=== PATIENT | male | born 1950 | race Caucasian/White ===

== ENCOUNTER 2018-08-20 00:17 | Inpatient (IN) | payer MEDICARE ==
[~2018-08-20] VITALS: Ht 163.8 cm; Wt 73.5 kg
[~2018-08-20 00:17] MED LIST: ALPR0.25 PO; ASPI-621 PO; ATOR10TA PO; ATOR40TA78 PO; ESOM20CA PO; METO25TA35 PO; OMEP20TA9 PO; OMEP40CA6 PO; TICA90TA PO
[2018-08-20] MEDS ORDERED: PROPOFOL 10 MG/ML, 20ML ONE (00:25)
[2018-08-20] MEDS ORDERED: PROPOFOL 10 MG/ML, 20ML IVPush ONE (00:30)
[2018-08-20] MEDS ORDERED: SODIUM CHLORIDE 0.9% 1,000ML IVBOLUS ONE (00:30)
[2018-08-20] MEDS ORDERED: ONDANSETRON 2MG/ML, 2ML ONE (00:31)
[2018-08-20 00:54] LABS: BASOPHILS # (AUTO) 0.03 x10^3/uL (0-0.1); BASOPHILS % (AUTO) 0 % (0-1); EOSINOPHILS # (AUTO) 0.03 x10^3/uL (0-0.4); EOSINOPHILS % (AUTO) 0 % (1-7); LYMPHOCYTES # (AUTO) 1.88 x10^3/uL (1-3.4); LYMPHOCYTES % (AUTO) 15 % (22-44); MD NO; MEAN CORPUSCULAR HGB CONC 33.7 g/dL (33.2-36.2); MEAN CORPUSCULAR VOLUME 97.9 fL (81-97); MEAN PLATELET VOLUME 7.8 fL (7.4-10.4); MONOCYTES # (AUTO) 0.64 x10^3/uL (0.2-0.8); MONOCYTES % (AUTO) 5 % (2-9); NEUTROPHILS # (AUTO) 9.58 x10^3/uL (1.8-6.8); NEUTROPHILS % (AUTO) 79 % (42-75); PLATELET COUNT 197 x10^3/uL (130-400); RED BLOOD COUNT 4.63 x10^6/uL (4.38-5.82); RED CELL DISTRIBUTION WIDTH 13.2 % (9.4-14.8)
[2018-08-20 01:04] LABS: ALBUMIN 3.5 g/dL (3.4-5.0); ANION GAP 14 mmol/L (5-15); CALCIUM 8.3 mg/dL (8.5-10.1); CHLORIDE 109 mmol/L (98-107)
[2018-08-20 01:11] LABS: ALANINE AMINOTRANSFERASE 80 U/L (12-78); ALKALINE PHOSPHATASE 130 U/L (45-117); BILIRUBIN,TOTAL 0.9 mg/dL (0.2-1.0); CREATININE 1.46 mg/dL (0.7-1.3); TOTAL PROTEIN 6.6 g/dL (6.4-8.2)
[2018-08-20 01:16] LABS: TROPONIN I 0.531 ng/mL (0.000-0.045)
[2018-08-20] MEDS ORDERED: ATOR40TA78 PO (01:33)
[2018-08-20] MEDS ORDERED: [UNRECOGNIZED DRUG - CODE] PO (01:35)
[2018-08-20] MEDS ORDERED: SODIUM CHLORIDE 0.9% 1,000 ML IV ONE (02:28)
[2018-08-20 03:48] VITALS: BP 138/83
[2018-08-20] MEDS ORDERED: SODIUM CHLORIDE 0.9% 1,000 ML IV SCH (04:06)
[2018-08-20] MEDS ORDERED: BISACODYL 10 MG SUPP PR PRN (04:30)
[2018-08-20] MEDS ORDERED: ONDANSETRON ODT 4 MG PO PRN (04:30)
[2018-08-20] MEDS ORDERED: hydrALAzine 20 MG/ML, 1ML IVPush PRN (04:30)
[2018-08-20] MEDS ORDERED: ACETAMINOPHEN 325 MG TABLET PO PRN (04:30)
[2018-08-20] MEDS ORDERED: ONDANSETRON 2MG/ML, 2ML IVPush PRN (04:30)
[2018-08-20] MEDS ORDERED: PROMETHAZINE 25 MG/ML, 1ML IM PRN (04:30)
[2018-08-20] MEDS ORDERED: POLYETHYLENE GLYCOL 17 GM PACKET PO PRN (04:30)
[2018-08-20] MEDS ORDERED: DOCUSATE 100 MG CAPSULE PO PRN (04:30)
[2018-08-20] MEDS ORDERED: LABETALOL 5MG/ML, 20ML IVPush PRN (04:30)
[2018-08-20] MEDS: METOPROLOL TARTRATE 25 MG TABLET PO SCH ×3 (05:01→20:59)
[2018-08-20] MEDS: HEPARIN 5,000 UNITS/ML, 1ML SQ SCH ×3 (05:02→20:30)
[2018-08-20] MEDS ORDERED: NIAC500T26 PO (05:52)
[2018-08-20] MEDS ORDERED: ALPR0.25 PO (05:56)
[2018-08-20] MEDS ORDERED: METOPROLOL TARTRATE 25 MG TABLET PO SCH ×2 (06:00→18:00)
[2018-08-20 06:25] LABS: HEMOGLOBIN A1C 5.5 % (4.2-6.3)
[2018-08-20 06:32] LABS: THYROID STIMULATING HORMONE 1.04 mIU/L (0.358-3.740)
[2018-08-20 07:03] LABS: ALANINE AMINOTRANSFERASE 110 U/L (12-78); ALBUMIN 3.6 g/dL (3.4-5.0); ANION GAP 12 mmol/L (5-15); CALCIUM 8.5 mg/dL (8.5-10.1); CHLORIDE 108 mmol/L (98-107); CREATININE 0.86 mg/dL (0.7-1.3)
[2018-08-20 07:07] LABS: ALKALINE PHOSPHATASE 130 U/L (45-117); BILIRUBIN,TOTAL 0.7 mg/dL (0.2-1.0); TROPONIN I 0.754 ng/mL (0.000-0.045)
[2018-08-20 08:00] VITALS: BP 107/67
[2018-08-20] MEDS: ASPIRIN 81 MG TABLET EC PO SCH (08:21)
[2018-08-20] MEDS: OMEPRAZOLE 20 MG CAPSULE.DR PO SCH ×2 (08:21→20:59)
[2018-08-20 11:13] LABS: MICROSCOPIC NOT IND
[2018-08-20 11:14] LABS: CULTURE INDICATED? NO
[2018-08-20] MEDS: NIACIN 500 MG TABLET.ER PO SCH (11:30)
[2018-08-20] MEDS ORDERED: LOPERAMIDE 1 MG/5 ML, 10ML UDC PO PRN (11:30)
[2018-08-20 12:46] LABS: TROPONIN I 0.878 ng/mL (0.000-0.045)
[2018-08-20] MEDS ORDERED: LOPERAMIDE 2 MG CAPSULE ONE (13:12)
[2018-08-20] MEDS: LOPERAMIDE 2 MG CAPSULE PO PRN (13:13)
[2018-08-20 13:20] VITALS: BP 122/80
[2018-08-20 18:45] VITALS: BP 102/72
[2018-08-20] MEDS ORDERED: ATORVASTATIN 40 MG TABLET PO SCH (21:00)
[2018-08-20 21:28] VITALS: BP 111/73
[2018-08-21 00:37] VITALS: BP 109/71
[2018-08-21] MEDS: HEPARIN 5,000 UNITS/ML, 1ML SQ SCH (04:30)
[2018-08-21 05:55] LABS: ALBUMIN 3.4 g/dL (3.4-5.0); ANION GAP 6 mmol/L (5-15); CALCIUM 8.2 mg/dL (8.5-10.1); CHLORIDE 109 mmol/L (98-107)
[2018-08-21 05:59] LABS: BASOPHILS # (AUTO) 0.04 x10^3/uL (0-0.1); BASOPHILS % (AUTO) 1 % (0-1); EOSINOPHILS # (AUTO) 0.17 x10^3/uL (0-0.4); EOSINOPHILS % (AUTO) 2 % (1-7); LYMPHOCYTES # (AUTO) 2.77 x10^3/uL (1-3.4); LYMPHOCYTES % (AUTO) 38 % (22-44); MD NO; MEAN CORPUSCULAR HEMOGLOBIN 33.4 pg (27.5-34.5); MEAN CORPUSCULAR HGB CONC 34.1 g/dL (33.2-36.2); MEAN PLATELET VOLUME 8.3 fL (7.4-10.4); MONOCYTES # (AUTO) 0.57 x10^3/uL (0.2-0.8); MONOCYTES % (AUTO) 8 % (2-9); NEUTROPHILS # (AUTO) 3.75 x10^3/uL (1.8-6.8); NEUTROPHILS % (AUTO) 51 % (42-75); PLATELET COUNT 135 x10^3/uL (130-400); RED BLOOD COUNT 4.11 x10^6/uL (4.38-5.82); RED CELL DISTRIBUTION WIDTH 13.9 % (9.4-14.8)
[2018-08-21 06:00] LABS: ALANINE AMINOTRANSFERASE 128 U/L (12-78); ALKALINE PHOSPHATASE 106 U/L (45-117); BILIRUBIN,TOTAL 0.7 mg/dL (0.2-1.0); CHOL/HDL RATIO 2.4; CHOLESTEROL, TOTAL 111 mg/dL (140-239); CREATININE 0.79 mg/dL (0.7-1.3); HDL CHOL % 41 % (26-37); HDL CHOLESTEROL (DIRECT) 46 mg/dL (40-60); TOTAL PROTEIN 6.5 g/dL (6.4-8.2); TRIGLYCERIDES 125 mg/dL (50-200); VLDL CHOLESTEROL 25 mg/dL (0-25)
[2018-08-21 06:01] LABS: LDL CHOLESTEROL,CALCULATED 40 mg/dL (54-169); LDL/HDL RATIO 0.9 (0.5-3.0)
[2018-08-21 08:24] VITALS: BP 98/62
[2018-08-21] MEDS: ASPIRIN 81 MG TABLET EC PO SCH (08:54)
[2018-08-21] MEDS: OMEPRAZOLE 20 MG CAPSULE.DR PO SCH (08:55)
[2018-08-21] MEDS: METOPROLOL TARTRATE 25 MG TABLET PO SCH (08:55)
[2018-08-21] MEDS: NIACIN 500 MG TABLET.ER PO SCH (08:57)
[2018-08-21] MEDS: LOPERAMIDE 2 MG CAPSULE PO PRN (09:03)
[2018-08-21] MEDS ORDERED: METO25TA35 PO (09:23)
[2018-08-22] MEDS ORDERED: ESOM40CA PO (05:59)
== END 2018-08-21 12:20 | disposition home or self-care (01) | DRG 308 ==
LOC: ED 01:04 → EDIP 02:28 → 5SO 03:49 → DCLOUNGE 08-21 12:15
PROVIDERS: ADMIT Internal Medicine; ATTEND Internal Medicine
PROC: 5A2204Z Restoration of Cardiac Rhythm, Single (ICD-10-PCS; principal; 2018-08-20)
DX: I47.2 Ventricular tachycardia (principal); N17.0 Acute kidney failure with tubular necrosis; E87.2 Acidosis; E78.5 Hyperlipidemia, unspecified; I10 Essential (primary) hypertension; I25.10 Atherosclerotic heart disease of native coronary artery without angina pectoris; K21.9 Gastro-esophageal reflux disease without esophagitis; K22.4 Dyskinesia of esophagus; R09.02 Hypoxemia; Z79.82 Long term (current) use of aspirin; I25.2 Old myocardial infarction; Z82.49 Family history of ischemic heart disease and other diseases of the circulatory system; Z87.891 Personal history of nicotine dependence; Z95.5 Presence of coronary angioplasty implant and graft
CPT/HCPCS: 36415; 71045; 80053; 80061; 81003; 82306; 82607; 83036; 83735; 84439; 84443; 84484; 85025; 92960; 93005; 93306; 96360; G0378; J7030

== ENCOUNTER 2018-08-22 04:43 | Inpatient (IN) | payer MEDICARE ==
[~2018-08-22] VITALS: Ht 163.8 cm; Wt 72.6 kg
[~2018-08-22 04:43] MED LIST changes: +NIAC500T26 PO; +[UNRECOGNIZED DRUG - CODE] PO
[2018-08-22] MEDS ORDERED: SODIUM CHLORIDE FLUSH 10ML SYR IVF ONE (05:30)
[2018-08-22] MEDS ORDERED: SODIUM CHLORIDE 0.9% 1,000ML IVBOLUS ONE (05:30)
[2018-08-22] MEDS ORDERED: METHOCARBAMOL 1,000 MG in DEXTROSE 5% 100 ML IV ONE (05:30)
[2018-08-22] MEDS ORDERED: MAALOX/HYOSCYAMINE/LIDOCAINE 45 ML BTL PO ONE (05:30)
[2018-08-22 05:37] LABS: BASOPHILS # (AUTO) 0.07 x10^3/uL (0-0.1); BASOPHILS % (AUTO) 1 % (0-1); EOSINOPHILS # (AUTO) 0.16 x10^3/uL (0-0.4); EOSINOPHILS % (AUTO) 2 % (1-7); LYMPHOCYTES # (AUTO) 2.62 x10^3/uL (1-3.4); LYMPHOCYTES % (AUTO) 27 % (22-44); MD NO; MEAN CORPUSCULAR HEMOGLOBIN 33.6 pg (27.5-34.5); MEAN CORPUSCULAR HGB CONC 34.4 g/dL (33.2-36.2); MEAN CORPUSCULAR VOLUME 97.7 fL (81-97); MONOCYTES % (AUTO) 6 % (2-9); NEUTROPHILS # (AUTO) 6.12 x10^3/uL (1.8-6.8); NEUTROPHILS % (AUTO) 64 % (42-75); PLATELET COUNT 159 x10^3/uL (130-400); RED BLOOD COUNT 4.27 x10^6/uL (4.38-5.82); RED CELL DISTRIBUTION WIDTH 13.6 % (9.4-14.8)
[2018-08-22] MEDS ORDERED: MAALOX/HYOSCYAMINE/LIDOCAINE 45 ML BTL ONE (05:39)
[2018-08-22 05:46] LABS: ALANINE AMINOTRANSFERASE 131 U/L (12-78); ALBUMIN 3.5 g/dL (3.4-5.0); ANION GAP 10 mmol/L (5-15); CALCIUM 8.6 mg/dL (8.5-10.1); CHLORIDE 106 mmol/L (98-107)
[2018-08-22 05:51] LABS: ALKALINE PHOSPHATASE 129 U/L (45-117); BILIRUBIN,TOTAL 0.4 mg/dL (0.2-1.0); CREATININE 0.87 mg/dL (0.7-1.3); TOTAL PROTEIN 6.9 g/dL (6.4-8.2)
[2018-08-22] MEDS ORDERED: ESOM40CA PO (05:59)
[2018-08-22 06:00] LABS: TROPONIN I 0.245 ng/mL (0.000-0.045)
[2018-08-22] MEDS ORDERED: METOCLOPRAMIDE 5 MG/ML, 2ML ONE (06:47)
[2018-08-22] MEDS ORDERED: MORPHINE SULFATE 4 MG/ML, 1ML ONE (06:47)
[2018-08-22] MEDS ORDERED: METOCLOPRAMIDE 5 MG/ML, 2ML IVPush ONE (07:00)
[2018-08-22] MEDS ORDERED: MORPHINE SULFATE 4 MG/ML, 1ML IVPush ONE ×2 (07:00→11:30)
[2018-08-22] MEDS ORDERED: ONDANSETRON 2MG/ML, 2ML IVPush PRN (08:30)
[2018-08-22] MEDS ORDERED: ONDANSETRON ODT 4 MG PO PRN (08:30)
[2018-08-22 08:36] VITALS: BP 124/71
[2018-08-22 08:42] VITALS: BP 124/70
[2018-08-22 09:34] VITALS: BP 137/87
[2018-08-22 09:39] LABS: CHOL/HDL RATIO 2.6
[2018-08-22] MEDS ORDERED: LORazepam 0.5MG TABLET ONE (09:50)
[2018-08-22] MEDS: LORazepam 0.5MG TABLET PO PRN ×2 (09:52→20:52)
[2018-08-22 10:40] VITALS: BP 146/84
[2018-08-22] MEDS ORDERED: FUROSEMIDE 20 MG/2 ML ONE (10:50)
[2018-08-22] MEDS ORDERED: FUROSEMIDE 40 MG/4 ML IV ONE (10:50)
[2018-08-22] MEDS: ASPIRIN 81 MG TABLET EC PO SCH (11:01)
[2018-08-22] MEDS: NIACIN 500 MG TABLET.ER PO SCH (11:02)
[2018-08-22] MEDS: ENOXAPARIN 40 MG/0.4 ML SQ SCH (11:02)
[2018-08-22] MEDS: FAMOTIDINE 20 MG TABLET PO SCH ×2 (11:20→20:53)
[2018-08-22] MEDS: ESOMEPRAZOLE MAGNESIUM 40 MG PO SCH ×2 (11:20→20:53)
[2018-08-22 12:35] LABS: TROPONIN I 0.121 ng/mL (0.000-0.045)
[2018-08-22] MEDS: SODIUM CHLORIDE 0.9% 1,000 ML IV SCH ×2 (12:58→23:00)
[2018-08-22 13:52] VITALS: BP 144/83
[2018-08-22] MEDS ORDERED: TICAGRELOR 90 MG TABLET ONE (14:07)
[2018-08-22] MEDS ORDERED: FENTANYL PF 100 MCG/2ML ONE (14:07)
[2018-08-22] MEDS ORDERED: MIDAZOLAM 1 MG/ML, 2ML ONE (14:07)
[2018-08-22] MEDS ORDERED: VERAPAMIL 2.5 MG/ML, 2ML ONE (14:08)
[2018-08-22] MEDS ORDERED: HEPARIN 1,000 UNITS/ML, 10ML ONE (14:08)
[2018-08-22] MEDS ORDERED: BIVALIRUDIN 250 MG ONE (14:08)
[2018-08-22] MEDS ORDERED: MIDAZOLAM 1 MG/ML, 5ML ONE (14:16)
[2018-08-22] MEDS: METOPROLOL TARTRATE 25 MG TABLET PO SCH (18:25)
[2018-08-22 19:45] VITALS: BP 136/85
[2018-08-22] MEDS: PANTOPROZOLE 40MG TABLET PO SCH (20:52)
[2018-08-22] MEDS: ATORVASTATIN 40 MG TABLET PO SCH (20:52)
[2018-08-22 23:44] LABS: MICROSCOPIC NOT IND
[2018-08-23 01:28] VITALS: BP 129/84
[2018-08-23 04:56] LABS: ALANINE AMINOTRANSFERASE 126 U/L (12-78); ALBUMIN 3.1 g/dL (3.4-5.0); ANION GAP 8 mmol/L (5-15); CALCIUM 8.5 mg/dL (8.5-10.1); CHLORIDE 104 mmol/L (98-107); CREATININE 0.89 mg/dL (0.7-1.3)
[2018-08-23 04:57] LABS: MEAN CORPUSCULAR HEMOGLOBIN 33.4 pg (27.5-34.5); MEAN CORPUSCULAR HGB CONC 34.2 g/dL (33.2-36.2); MEAN CORPUSCULAR VOLUME 97.7 fL (81-97); MEAN PLATELET VOLUME 8.3 fL (7.4-10.4); PLATELET COUNT 148 x10^3/uL (130-400); RED BLOOD COUNT 4.39 x10^6/uL (4.38-5.82); RED CELL DISTRIBUTION WIDTH 13.3 % (9.4-14.8)
[2018-08-23 04:58] LABS: ALKALINE PHOSPHATASE 110 U/L (45-117); BILIRUBIN,TOTAL 1.8 mg/dL (0.2-1.0); TOTAL PROTEIN 6.6 g/dL (6.4-8.2)
[2018-08-23] MEDS: METOPROLOL TARTRATE 25 MG TABLET PO SCH ×2 (05:51→17:25)
[2018-08-23 06:20] LABS: MD YES
[2018-08-23 06:22] LABS: BAND#(MANUAL) 4.14 x10^3/uL; BANDS%(MANUAL) 22 % (0-7); LYMPHS% (MANUAL) 8 % (22-44); METAMYELOCYTES# (MANUAL) 0.19 x10^3/uL (0-0); METAMYELOCYTES% (MANUAL) 1 % (0-1); MONOS#(MANUAL) 0.56 x10^3/uL (0.3-2.7); MONOS% (MANUAL) 3 % (2-9); SEG#(MANUAL) 12.41 x10^3/uL (1.8-6.8); SEGS% (MANUAL) 66 % (42-75)
[2018-08-23 06:24] LABS: <PLATELET ESTIMATE> ADEQUATE; <PLT MORPHOLOGY> NORMAL PLT MORPH; ANISOCYTOSIS 1+; POLYCHROMASIA 1+
[2018-08-23 07:10] VITALS: BP 125/82
[2018-08-23] MEDS: ESOMEPRAZOLE MAGNESIUM 40 MG PO SCH (08:49)
[2018-08-23] MEDS ORDERED: CEFTRIAXONE 1,000 MG in SODIUM CHLORIDE 0.9% 50 ML IV SCH (09:00)
[2018-08-23] MEDS: NIACIN 500 MG TABLET.ER PO SCH (09:00)
[2018-08-23] MEDS: SODIUM CHLORIDE 0.9% 1,000 ML IV SCH ×3 (11:03→20:40)
[2018-08-23] MEDS: ENOXAPARIN 40 MG/0.4 ML SQ SCH (12:29)
[2018-08-23] MEDS: ASPIRIN 81 MG TABLET EC PO SCH (12:29)
[2018-08-23] MEDS: FAMOTIDINE 20 MG TABLET PO SCH ×2 (12:30→21:19)
[2018-08-23] MEDS: PANTOPROZOLE 40MG TABLET PO SCH ×2 (12:30→22:02)
[2018-08-23 13:28] LABS: MICROSCOPIC INDICATED
[2018-08-23 13:51] VITALS: BP 128/81
[2018-08-23] MEDS: FILTER 0.22 MICRON IV PRN (14:18)
[2018-08-23] MEDS: AMIODARONE 900 MG in DEXTROSE 5% 482 ML IV PRN ×2 (14:27→21:11)
[2018-08-23] MEDS ORDERED: AMIODARONE 150 MG in DEXTROSE 5% 100 ML IV ONE (14:30)
[2018-08-23 14:49] VITALS: BP 129/87
[2018-08-23] MEDS ORDERED: MAGNESIUM SULFATE PMX 2GM/50ML 50 ML IV ONE (15:30)
[2018-08-23 16:47] LABS: INTERNATIONAL NORMALIZED RATIO 1.21 (0.93-1.1); PROTHROMBIN TIME 12.4 Seconds (9.6-11.5)
[2018-08-23] MEDS ORDERED: KETAMINE 50 MG/ML, 10ML ONE (17:32)
[2018-08-23] MEDS ORDERED: FENTANYL PF 250 MCG/5ML ONE (17:33)
[2018-08-23] MEDS ORDERED: MIDAZOLAM 1 MG/ML, 2ML ONE (17:33)
[2018-08-23] MEDS ORDERED: LIDOCAINE-MPF 1%, 5ML ONE (17:44)
[2018-08-23] MEDS ORDERED: ACETAMINOPHEN 325 MG TABLET PO PRN (19:00)
[2018-08-23] MEDS ORDERED: FENTANYL PF 100 MCG/2ML IV PRN (19:00)
[2018-08-23] MEDS: ATORVASTATIN 40 MG TABLET PO SCH (21:19)
[2018-08-23 21:30] VITALS: BP 112/73
[2018-08-24 01:30] VITALS: BP 129/73
[2018-08-24] MEDS: METOPROLOL TARTRATE 25 MG TABLET PO SCH ×2 (05:05→17:48)
[2018-08-24] MEDS: SODIUM CHLORIDE 0.9% 1,000 ML IV SCH ×2 (05:09→14:25)
[2018-08-24 06:44] VITALS: BP 102/67
[2018-08-24] MEDS: MORPHINE SULFATE 4 MG/ML, 1ML IVPush PRN ×2 (07:37→17:49)
[2018-08-24 07:57] LABS: MEAN CORPUSCULAR HEMOGLOBIN 32.9 pg (27.5-34.5); MEAN CORPUSCULAR HGB CONC 34.1 g/dL (33.2-36.2); MEAN CORPUSCULAR VOLUME 96.4 fL (81-97); MEAN PLATELET VOLUME 8.3 fL (7.4-10.4); PLATELET COUNT 137 x10^3/uL (130-400); RED BLOOD COUNT 4.19 x10^6/uL (4.38-5.82); RED CELL DISTRIBUTION WIDTH 13.4 % (9.4-14.8)
[2018-08-24 08:02] LABS: ALBUMIN 2.5 g/dL (3.4-5.0); ANION GAP 7 mmol/L (5-15); CALCIUM 8.2 mg/dL (8.5-10.1); CHLORIDE 105 mmol/L (98-107)
[2018-08-24 08:05] LABS: ALANINE AMINOTRANSFERASE 86 U/L (12-78); ALKALINE PHOSPHATASE 102 U/L (45-117); BILIRUBIN,TOTAL 1.4 mg/dL (0.2-1.0); CREATININE 0.68 mg/dL (0.7-1.3); TOTAL PROTEIN 6.1 g/dL (6.4-8.2)
[2018-08-24 08:25] LABS: MD YES
[2018-08-24 08:27] LABS: BAND#(MANUAL) 0.14 x10^3/uL; BANDS%(MANUAL) 1 % (0-7); BASOS#(MANUAL) 0.28 x10^3/uL (0-0.1); BASOS% (MANUAL) 2 % (0-1); LYMPH#(MANUAL) 1.79 x10^3/uL (1-3.4); LYMPHS% (MANUAL) 13 % (22-44); MONOS#(MANUAL) 0.69 x10^3/uL (0.3-2.7); MONOS% (MANUAL) 5 % (2-9); REACTIVE LYMPHS # (MANUAL) 0.28 x10^3/uL (0-0); REACTIVE LYMPHS % (MANUAL) 2 % (0-0); SEG#(MANUAL) 10.63 x10^3/uL (1.8-6.8); SEGS% (MANUAL) 77 % (42-75)
[2018-08-24 08:28] LABS: <PLATELET ESTIMATE> ADEQUATE; <PLT MORPHOLOGY> NORMAL PLT MORPH
[2018-08-24 08:31] LABS: <RBC MORPHOLOGY> NORMAL
[2018-08-24] MEDS: NIACIN 500 MG TABLET.ER PO SCH ×2 (09:00→12:01)
[2018-08-24] MEDS: ASPIRIN 81 MG TABLET EC PO SCH (10:13)
[2018-08-24] MEDS: FAMOTIDINE 20 MG TABLET PO SCH ×2 (10:13→19:59)
[2018-08-24] MEDS: PANTOPROZOLE 40MG TABLET PO SCH ×2 (10:13→19:59)
[2018-08-24] MEDS: ENOXAPARIN 40 MG/0.4 ML SQ SCH (10:13)
[2018-08-24 12:58] VITALS: BP 113/74
[2018-08-24] MEDS: CEFTRIAXONE PMX 1GM/50ML 50 ML IV SCH (13:26)
[2018-08-24] MEDS: ATORVASTATIN 40 MG TABLET PO SCH (19:59)
[2018-08-24 20:00] VITALS: BP 118/81
[2018-08-25] MEDS: SODIUM CHLORIDE 0.9% 1,000 ML IV SCH ×2 (00:11→08:35)
[2018-08-25 01:11] VITALS: BP 101/58
[2018-08-25 05:00] LABS: BASOPHILS # (AUTO) 0.06 x10^3/uL (0-0.1); BASOPHILS % (AUTO) 1 % (0-1); EOSINOPHILS # (AUTO) 0.19 x10^3/uL (0-0.4); EOSINOPHILS % (AUTO) 2 % (1-7); LYMPHOCYTES # (AUTO) 1.67 x10^3/uL (1-3.4); LYMPHOCYTES % (AUTO) 15 % (22-44); MD NO; MEAN CORPUSCULAR HEMOGLOBIN 33.3 pg (27.5-34.5); MEAN CORPUSCULAR HGB CONC 34.1 g/dL (33.2-36.2); MEAN CORPUSCULAR VOLUME 97.8 fL (81-97); MEAN PLATELET VOLUME 8.7 fL (7.4-10.4); MONOCYTES # (AUTO) 0.57 x10^3/uL (0.2-0.8); MONOCYTES % (AUTO) 5 % (2-9); NEUTROPHILS # (AUTO) 8.79 x10^3/uL (1.8-6.8); NEUTROPHILS % (AUTO) 78 % (42-75); PLATELET COUNT 130 x10^3/uL (130-400); RED BLOOD COUNT 4.02 x10^6/uL (4.38-5.82); RED CELL DISTRIBUTION WIDTH 13.5 % (9.4-14.8)
[2018-08-25 05:10] LABS: ALANINE AMINOTRANSFERASE 67 U/L (12-78); ALBUMIN 2.3 g/dL (3.4-5.0); ANION GAP 4 mmol/L (5-15); CHLORIDE 105 mmol/L (98-107); CREATININE 0.73 mg/dL (0.7-1.3)
[2018-08-25 05:12] LABS: ALKALINE PHOSPHATASE 103 U/L (45-117); BILIRUBIN,TOTAL 0.9 mg/dL (0.2-1.0); TOTAL PROTEIN 5.9 g/dL (6.4-8.2)
[2018-08-25] MEDS: METOPROLOL TARTRATE 25 MG TABLET PO SCH ×2 (05:23→18:44)
[2018-08-25 06:40] VITALS: BP 101/65
[2018-08-25] MEDS ORDERED: MAGNESIUM SULFATE PMX 2GM/50ML 50 ML IV ONE (08:00)
[2018-08-25] MEDS ORDERED: AMIODARONE 150 MG in DEXTROSE 5% 100 ML IV ONE (08:00)
[2018-08-25] MEDS ORDERED: POTASSIUM CHLORIDE 20 MEQ TAB.ER.PRT PO SCH (08:00)
[2018-08-25] MEDS: NIACIN 500 MG TABLET.ER PO SCH (08:35)
[2018-08-25] MEDS: ENOXAPARIN 40 MG/0.4 ML SQ SCH (08:35)
[2018-08-25] MEDS: FAMOTIDINE 20 MG TABLET PO SCH ×2 (08:35→21:08)
[2018-08-25] MEDS: ASPIRIN 81 MG TABLET EC PO SCH (08:35)
[2018-08-25] MEDS: PANTOPROZOLE 40MG TABLET PO SCH ×2 (08:36→21:08)
[2018-08-25] MEDS: AMIODARONE 900 MG in DEXTROSE 5% 482 ML IV PRN (10:00)
[2018-08-25] MEDS: FILTER 0.22 MICRON IV PRN (10:01)
[2018-08-25] MEDS: CEFTRIAXONE PMX 1GM/50ML 50 ML IV SCH (10:26)
[2018-08-25 12:17] VITALS: BP 99/60
[2018-08-25 12:35] VITALS: BP 107/70
[2018-08-25 18:14] LABS: CLOSTRIDIUM DIFFICILE ANTIGEN NEGATIVE; CLOSTRIDIUM DIFFICILE TOXIN NEGATIVE (Negative)
[2018-08-25] MEDS: LOPERAMIDE 2 MG CAPSULE PO PRN (18:44)
[2018-08-25 18:51] VITALS: BP 161/77
[2018-08-25] MEDS: ATORVASTATIN 40 MG TABLET PO SCH (21:08)
[2018-08-26 02:11] VITALS: BP 109/74
[2018-08-26] MEDS: METOPROLOL TARTRATE 25 MG TABLET PO SCH (05:33)
[2018-08-26 05:36] VITALS: BP 103/63
[2018-08-26 05:46] LABS: BASOPHILS # (AUTO) 0.02 x10^3/uL (0-0.1); BASOPHILS % (AUTO) 0 % (0-1); EOSINOPHILS # (AUTO) 0.23 x10^3/uL (0-0.4); EOSINOPHILS % (AUTO) 2 % (1-7); LYMPHOCYTES # (AUTO) 1.28 x10^3/uL (1-3.4); LYMPHOCYTES % (AUTO) 13 % (22-44); MD NO; MEAN CORPUSCULAR HEMOGLOBIN 33.3 pg (27.5-34.5); MEAN CORPUSCULAR HGB CONC 34.5 g/dL (33.2-36.2); MEAN CORPUSCULAR VOLUME 96.5 fL (81-97); MEAN PLATELET VOLUME 8.7 fL (7.4-10.4); MONOCYTES # (AUTO) 0.56 x10^3/uL (0.2-0.8); MONOCYTES % (AUTO) 6 % (2-9); NEUTROPHILS # (AUTO) 7.48 x10^3/uL (1.8-6.8); NEUTROPHILS % (AUTO) 78 % (42-75); PLATELET COUNT 150 x10^3/uL (130-400); RED BLOOD COUNT 4.23 x10^6/uL (4.38-5.82); RED CELL DISTRIBUTION WIDTH 13.8 % (9.4-14.8)
[2018-08-26 05:50] LABS: CHLORIDE 103 mmol/L (98-107)
[2018-08-26 06:11] LABS: ALANINE AMINOTRANSFERASE 72 U/L (12-78); ALBUMIN 2.4 g/dL (3.4-5.0); ALKALINE PHOSPHATASE 135 U/L (45-117); ANION GAP 10 mmol/L (5-15); BILIRUBIN,TOTAL 1.2 mg/dL (0.2-1.0); CALCIUM 8.4 mg/dL (8.5-10.1); CREATININE 0.68 mg/dL (0.7-1.3); TOTAL PROTEIN 6.5 g/dL (6.4-8.2)
[2018-08-26 07:24] VITALS: BP 105/63
[2018-08-26] MEDS ORDERED: AMIODARONE 200 MG TABLET ONE (07:29)
[2018-08-26] MEDS: CEFTRIAXONE PMX 1GM/50ML 50 ML IV SCH ×2 (08:25→10:00)
[2018-08-26] MEDS: LOPERAMIDE 2 MG CAPSULE PO PRN (08:26)
[2018-08-26] MEDS: ASPIRIN 81 MG TABLET EC PO SCH (08:26)
[2018-08-26] MEDS: FAMOTIDINE 20 MG TABLET PO SCH (08:26)
[2018-08-26] MEDS: PANTOPROZOLE 40MG TABLET PO SCH (08:26)
[2018-08-26] MEDS: NIACIN 500 MG TABLET.ER PO SCH (08:26)
[2018-08-26] MEDS: ENOXAPARIN 40 MG/0.4 ML SQ SCH (08:27)
[2018-08-26] MEDS ORDERED: AMIODARONE 200 MG TABLET PO SCH (09:00)
[2018-08-26] MEDS ORDERED: AMIO200T42 PO (11:17)
[2018-08-26] MEDS ORDERED: CEFD300C37 PO (11:17)
[2018-08-26] MEDS ORDERED: METR500T PO (11:17)
[2018-08-26] MEDS ORDERED: MULT-412 PO (11:18)
[2018-08-26] MEDS ORDERED: TRAM50TA2 PO (12:44)
== END 2018-08-26 13:16 | disposition home or self-care (01) | DRG 871 ==
LOC: ED 06:10 → EDIP 06:11 → ED 06:29 → 5SO 08:28 → DCLOUNGE 08-26 12:42
PROVIDERS: ADMIT Hospitalist; ATTEND Hospitalist
PROC: 4A023N7 Measurement of Cardiac Sampling and Pressure, Left Heart, Percutaneous Approach (ICD-10-PCS; principal; 2018-08-22)
PROC: B2111ZZ Fluoroscopy of Multiple Coronary Arteries using Low Osmolar Contrast (ICD-10-PCS; 2018-08-22)
PROC: B2151ZZ Fluoroscopy of Left Heart using Low Osmolar Contrast (ICD-10-PCS; 2018-08-22)
PROC: 0F943ZZ Drainage of Gallbladder, Percutaneous Approach (ICD-10-PCS; 2018-08-23)
DX: A41.9 Sepsis, unspecified organism (principal); J81.0 Acute pulmonary edema; K81.0 Acute cholecystitis; I47.2 Ventricular tachycardia; J98.11 Atelectasis; D68.69 Other thrombophilia; I47.1 Supraventricular tachycardia; I48.92 Unspecified atrial flutter; E78.5 Hyperlipidemia, unspecified; G89.29 Other chronic pain; I25.10 Atherosclerotic heart disease of native coronary artery without angina pectoris; I25.2 Old myocardial infarction; I44.7 Left bundle-branch block, unspecified; I48.0 Paroxysmal atrial fibrillation; K21.9 Gastro-esophageal reflux disease without esophagitis; K22.4 Dyskinesia of esophagus; R09.02 Hypoxemia; Z79.82 Long term (current) use of aspirin; Z82.49 Family history of ischemic heart disease and other diseases of the circulatory system; Z95.5 Presence of coronary angioplasty implant and graft; F41.9 Anxiety disorder, unspecified; M54.5 Low back pain
CPT/HCPCS: 36415; 71045; 74022; 74181; 75989; 76700; 76942; 78227; 80053; 80061; 81001; 81003; 83605; 83690; 83735; 83880; 84100; 84145; 84484; 85025; 85610; 85730; 87040; 87324; 93005; 93458; 93571; 96374; 99156; 99157; C1769; C1894; G0378; J0583; J0696; J1644; J1650; J1940; J2250; J3010; A9537; C1729; C1887; C9898; J0282; J2765; J2800; J3475; J7030; J7060; Q9967